=== PATIENT | male | born 2000 | race African-American/Black ===

== ENCOUNTER 2024-11-11 18:58 | Emergency (ER) | payer MEDICAID ==
[~2024-11-11] VITALS: Ht 170.2 cm; Wt 75.0 kg
[2024-11-11 19:06] VITALS: BP 106/68; PULSE 98; RESP 15; TEMP 98.4; O2SAT 98
[2024-12-29] MEDS ORDERED: LEVO750T68 MT (09:45)
== END 2024-11-11 23:15 | disposition home or self-care (01) ==
LOC: ER 18:58
DX: T83.038A Leakage of other urinary catheter, initial encounter (principal); Z46.6 Encounter for fitting and adjustment of urinary device; G82.20 Paraplegia, unspecified; Y92.89 Other specified places as the place of occurrence of the external cause
CPT/HCPCS: 51702; 99284

== ENCOUNTER 2025-02-02 15:43 | Emergency (ER) | payer MEDICAID ==
[~2025-02-02] VITALS: Ht 172.7 cm; Wt 64.0 kg
[~2025-02-02 15:43] MED LIST: LEVO750T68 MT
[2025-02-02 15:56] VITALS: TEMP 37.1; O2SAT 99
[2025-02-02 17:16] LABS: CLARITY URINE CLEAR (CLEAR); COLOR URINE YELLOW (YELLOW); GLUCOSE URINE NEGATIVE (NEGATIVE); KETONES URINE NEGATIVE (NEGATIVE); LEUKOCYTE ESTERASE URINE 3+ (NEGATIVE); NITRITE URINE NEGATIVE (NEGATIVE); OCCULT BLOOD URINE 1+ (NEGATIVE); PH URINE 6.5 (4.5-8.0); PROTEIN URINE NEGATIVE (NEGATIVE); SPECIFIC GRAVITY URINE 1.002 (1.005-1.030); UROBILINOGEN URINE 0.2 E.U./dL (0.2-1.0)
[2025-02-02] MEDS ORDERED: TOPUD MT (17:24)
[2025-02-02] MEDS ORDERED: LEVO750T68 MT (17:24)
[2025-02-02 17:29] LABS: BACTERIA URINE FEW; RBC URINE NONE SEEN /hpf (0-2); SQUAMOUS EPITHELIAL CELL URINE NONE SEEN /lpf (RARE/1+); YEAST URINE NONE SEEN
[2025-02-02] MEDS: SODIUM CHLORIDE 0.9% (SEPSIS BOLUS) IV ONE (17:43)
[2025-02-02] MEDS: CEFTRIAXONE 1GM/50ML 50 ML IV ONE (17:43)
[2025-02-02 19:30] VITALS: BP 118/60; PULSE 81; RESP 19; O2SAT 99
== END 2025-02-02 19:40 | disposition home or self-care (01) ==
LOC: ER 15:43 → EDBEDREQ 16:51 → CANBEDREQ 17:50 → ER 19:40
DX: R33.9 Retention of urine, unspecified (principal); Z46.6 Encounter for fitting and adjustment of urinary device; I49.9 Cardiac arrhythmia, unspecified; Z98.890 Other specified postprocedural states
CPT/HCPCS: 81003; 87086; 87186; 87077; 71045; 93005; 51702; 99285; J7030; Z7610 ×2

== ENCOUNTER 2025-02-26 16:03 | Emergency (ER) | payer MEDICAID ==
[~2025-02-26] VITALS: Ht 162.6 cm; Wt 66.0 kg
[~2025-02-26 16:03] MED LIST changes: +TOPUD MT
[2025-02-26 16:07] VITALS: O2SAT 97
[2025-02-26 19:11] LABS: CLARITY URINE CLEAR (CLEAR); COLOR URINE YELLOW (YELLOW); GLUCOSE URINE NEGATIVE (NEGATIVE); KETONES URINE NEGATIVE (NEGATIVE); LEUKOCYTE ESTERASE URINE 3+ (NEGATIVE); NITRITE URINE NEGATIVE (NEGATIVE); OCCULT BLOOD URINE 1+ (NEGATIVE); PROTEIN URINE NEGATIVE (NEGATIVE); SPECIFIC GRAVITY URINE 1.003 (1.005-1.030); UROBILINOGEN URINE 0.2 E.U./dL (0.2-1.0)
[2025-02-26] MEDS ORDERED: CEFP200T13 MT (20:00)
[2025-02-26 20:08] LABS: BACTERIA URINE TRACE; RBC URINE 0-2 /hpf (0-2); SQUAMOUS EPITHELIAL CELL URINE FEW /lpf (RARE/1+); WBC URINE 25-50 /hpf (0-2)
[2025-02-27 01:38] VITALS: BP 116/68; PULSE 109; RESP 14; TEMP 36.5; O2SAT 100
== END 2025-02-27 02:01 | disposition home or self-care (01) ==
LOC: ER 16:03
DX: Z46.6 Encounter for fitting and adjustment of urinary device (principal); N39.0 Urinary tract infection, site not specified; G82.20 Paraplegia, unspecified; I10 Essential (primary) hypertension
CPT/HCPCS: 51702; 81003; 87077; 87186; 99284

== ENCOUNTER 2025-04-18 11:57 | Emergency (ER) | payer MEDICAID ==
[~2025-04-18] VITALS: Ht 172.7 cm; Wt 77.0 kg
[~2025-04-18 11:57] MED LIST changes: +CEFP200T13 MT
[2025-04-18 12:00] VITALS: BP 129/78; PULSE 86; RESP 14; TEMP 37; O2SAT 98
== END 2025-04-18 20:41 | disposition home or self-care (01) ==
LOC: ER 11:57
DX: G82.20 Paraplegia, unspecified (principal); N39.0 Urinary tract infection, site not specified; F10.90 Alcohol use, unspecified, uncomplicated; F12.90 Cannabis use, unspecified, uncomplicated; Z46.6 Encounter for fitting and adjustment of urinary device; Y90.9 Presence of alcohol in blood, level not specified
CPT/HCPCS: 51702; 99284

== ENCOUNTER 2025-06-03 09:43 | Emergency (ER) | payer MEDICAID ==
[~2025-06-03] VITALS: Ht 175.3 cm; Wt 73.0 kg
[2025-06-03 09:45] VITALS: O2SAT 98
[2025-06-03 11:56] LABS: CLARITY URINE CLOUDY (CLEAR); COLOR URINE YELLOW (YELLOW); GLUCOSE URINE NEGATIVE (NEGATIVE); KETONES URINE NEGATIVE (NEGATIVE); LEUKOCYTE ESTERASE URINE 3+ (NEGATIVE); NITRITE URINE POSITIVE (NEGATIVE); OCCULT BLOOD URINE 1+ (NEGATIVE); PH URINE 7.0 (4.5-8.0); PROTEIN URINE 1+ (NEGATIVE); SPECIFIC GRAVITY URINE 1.008 (1.005-1.030); UROBILINOGEN URINE 0.2 E.U./dL (0.2-1.0)
[2025-06-03] MEDS ORDERED: LEVO750T68 PO (12:11)
[2025-06-03] MEDS ORDERED: LEVOFLOXACIN 500MG PREMIX 100 ML IV ONE (12:15)
[2025-06-03 12:25] LABS: BACTERIA URINE 1+; SQUAMOUS EPITHELIAL CELL URINE 1+ /lpf (RARE/1+); WBC URINE TNTC /hpf (0-2)
[2025-06-03 12:26] LABS: RBC URINE 0-2 /hpf (0-2)
[2025-06-03] MEDS: LEVOFLOXACIN 500MG TABLET PO ONE (12:27)
[2025-06-03 13:05] LABS: BASOPHILS % 0.5 % (0.0-2.0); EOSINOPHILS % 3.5 % (0.0-5.0); HEMATOCRIT. 36.9 % (42.0-52.0); HEMOGLOBIN. 12.3 g/dL (14.0-18.0); LYMPHOCYTES % 34.9 % (20.0-50.0); MEAN PLATELET VOLUME 6.5 fl (7.4-10.4); MONOCYTES % 13.7 % (2.0-8.0); NEUTROPHILS % 47.4 % (40.0-76.0); PLATELET 427 x1000/uL (130-400); RED BLOOD CELL COUNT 4.19 mill/uL (4.7-6.1); RED CELL DISTRIBUTION WIDTH 14.2 % (11.6-14.6)
[2025-06-03 13:22] LABS: CREATININE 0.9 mg/dL (0.6-1.3)
[2025-06-03 13:23] LABS: UREA NITROGEN BLOOD 10 mg/dL (9-23)
[2025-06-03 13:25] LABS: ASPARTATE AMINOTRANSFERASE 48 IU/L (<34); BILIRUBIN DIRECT 0.1 mg/dL (<=3.0); BILIRUBIN TOTAL 0.5 mg/dL (0.1-1.0); PROTEIN TOTAL 6.5 g/dL (6.0-8.3)
[2025-06-03 15:15] VITALS: BP 115/74; PULSE 108; RESP 16; TEMP 36.7; O2SAT 99
== END 2025-06-03 15:41 | disposition home or self-care (01) ==
LOC: ER 10:04
DX: T83.9XXA Unspecified complication of genitourinary prosthetic device, implant and graft, initial encounter (principal); N39.0 Urinary tract infection, site not specified; R33.9 Retention of urine, unspecified; F12.90 Cannabis use, unspecified, uncomplicated; G82.20 Paraplegia, unspecified; Y92.89 Other specified places as the place of occurrence of the external cause; Z79.899 Other long term (current) drug therapy
CPT/HCPCS: 36415; 51702; 80048; 80076; 81003; 85025; 87077; 87186; 99285; A4606

== ENCOUNTER 2025-07-02 08:40 | Emergency (ER) | payer MEDICAID ==
[~2025-07-02] VITALS: Ht 175.3 cm; Wt 72.0 kg
[~2025-07-02 08:40] MED LIST changes: +LEVO750T68 PO
[2025-07-02 08:43] VITALS: O2SAT 97
[2025-07-02 09:52] LABS: CLARITY URINE CLEAR (CLEAR); COLOR URINE YELLOW (YELLOW); GLUCOSE URINE NEGATIVE (NEGATIVE); KETONES URINE NEGATIVE (NEGATIVE); LEUKOCYTE ESTERASE URINE 2+ (NEGATIVE); NITRITE URINE POSITIVE (NEGATIVE); OCCULT BLOOD URINE NEGATIVE (NEGATIVE); PH URINE 5.5 (4.5-8.0); PROTEIN URINE NEGATIVE (NEGATIVE); SPECIFIC GRAVITY URINE 1.011 (1.005-1.030); UROBILINOGEN URINE 0.2 E.U./dL (0.2-1.0)
[2025-07-02] MEDS ORDERED: LEVO750T68 MT (10:09)
[2025-07-02 10:16] LABS: BACTERIA URINE 1+; RBC URINE 0-2 /hpf (0-2); SQUAMOUS EPITHELIAL CELL URINE 1+ /lpf (RARE/1+); WBC URINE 15-25 /hpf (0-2); YEAST URINE NONE SEEN
[2025-07-02] MEDS: LEVOFLOXACIN 500MG TABLET PO ONE (10:22)
[2025-07-02 11:32] VITALS: BP 133/81; PULSE 98; RESP 15; TEMP 36.9; O2SAT 97
== END 2025-07-02 11:34 | disposition home or self-care (01) ==
LOC: ER 08:40
DX: Z46.6 Encounter for fitting and adjustment of urinary device (principal); N39.0 Urinary tract infection, site not specified; G82.20 Paraplegia, unspecified; F10.90 Alcohol use, unspecified, uncomplicated; F12.90 Cannabis use, unspecified, uncomplicated; Y90.9 Presence of alcohol in blood, level not specified
CPT/HCPCS: 51702; 81003; 87077; 87186; 99284

== ENCOUNTER 2025-07-18 18:47 | Emergency (ER) | payer MEDICAID ==
[~2025-07-18] VITALS: Ht 170.2 cm; Wt 64.0 kg
[2025-07-18 18:52] VITALS: O2SAT 99
[2025-07-18 21:26] VITALS: BP 117/71; PULSE 94; RESP 20; TEMP 36.6; O2SAT 100
== END 2025-07-18 21:35 | disposition home or self-care (01) ==
LOC: ER 18:47
DX: T83.031A Leakage of indwelling urethral catheter, initial encounter (principal); G82.20 Paraplegia, unspecified; Z98.890 Other specified postprocedural states; F12.90 Cannabis use, unspecified, uncomplicated; X58.XXXA Exposure to other specified factors, initial encounter
CPT/HCPCS: 51702; 99284

== ENCOUNTER 2025-07-26 20:02 | Emergency (ER) | payer MEDICAID ==
[~2025-07-26] VITALS: Ht 165.1 cm; Wt 65.0 kg
[2025-07-26 20:12] VITALS: O2SAT 99
[2025-07-26 21:51] VITALS: BP 124/71; PULSE 85; RESP 18; TEMP 36.6; O2SAT 99
== END 2025-07-26 21:59 | disposition home or self-care (01) ==
LOC: ER 20:02
DX: T83.018A Breakdown (mechanical) of other urinary catheter, initial encounter (principal); G82.20 Paraplegia, unspecified; Z99.3 Dependence on wheelchair; Z79.899 Other long term (current) drug therapy; X58.XXXA Exposure to other specified factors, initial encounter; Y93.89 Activity, other specified; Y92.89 Other specified places as the place of occurrence of the external cause; Y99.8 Other external cause status
CPT/HCPCS: 99283